=== PATIENT | female | born 1935 | race Caucasian/White ===

== ENCOUNTER 2021-10-27 17:12 | Outpatient (CLI) | payer MEDICARE, OTHER ==
--- NOTE | 2021-10-27 17:45 | XRAY Report ---
PROCEDURE: Chest 2 View X-Ray INDICATIONS: Cough TECHNIQUE: 2 view(s) of the chest. COMPARISON: None. FINDINGS: Surgical changes and devices: None. Lungs and pleura: No pleural effusions or pneumothorax. Lungs are clear. Mediastinum: Mediastinal contours are normal. Heart size is normal. Bones and chest wall: No suspicious bony abnormalities. Soft tissues appear unremarkable. IMPRESSION: No acute cardiopulmonary process demonstrated radiographically. Reviewed by: Rigoberto Reynolds MD on 10/27/2021 4:44 PM [facility] Approved by: Rigoberto Reynolds MD on 10/27/2021 4:44 PM [facility] Station ID: [id number]
== END 2021-10-27 23:59 | disposition home or self-care (01) ==
LOC: DI.N 17:12
PROVIDERS: ATTEND Family Medicine
DX: R05.9 Cough, unspecified (principal); U07.1 COVID-19

== ENCOUNTER 2022-02-09 13:11 | Outpatient (CLI) | payer OTHER ==
--- NOTE | 2022-02-09 17:55 | XRAY Report ---
PROCEDURE: Humerus LT INDICATIONS: L HUMERUS PX TECHNIQUE: 2 views of the humerus were acquired. COMPARISON: None FINDINGS: Bones: No fractures or dislocations. No suspicious bony lesions. Degenerative changes of the acrom ioclavicular joint. Soft tissues: No suspicious soft tissue calcifications. IMPRESSION: No acute abnormality of the left humerus. Reviewed by: Magdy Hansen on 02/09/2022 5:54 PM PDT Approved by: Magdy Hansen on 02/09/2022 5:54 PM PDT Station ID: [id number]
--- NOTE | 2022-02-09 18:02 | XRAY Report ---
PROCEDURE: Shoulder 3 View LT INDICATIONS: L SHOULDER PX TECHNIQUE: Views of the location were acquired. COMPARISON: None. FINDINGS: Bones: No fractures or dislocations. No suspicious bony lesions. Degenerative changes of the left acromioclavicular joint and glenohumeral joint. Soft tissues: No suspicious soft tissue calcifications. 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 No acute abnormality. Reviewed by: Magdy Hansen on 02/09/2022 6:01 PM PDT Approved by: Magdy Hansen on 02/09/2022 6:01 PM PDT Station ID: [id number]
== END 2022-02-09 13:12 | disposition home or self-care (01) ==
LOC: DI.N 13:11
PROVIDERS: ATTEND Internal Medicine
DX: M19.012 Primary osteoarthritis, left shoulder (principal); M79.602 Pain in left arm